=== PATIENT | female | born 1930 ===

== ENCOUNTER 2020-02-26 21:41 | Inpatient (IN) ==
[2020-02-26] MEDS ORDERED: Ondansetron 4 mg VIAL 2 MG/ML 2 ml VIAL ONE (21:44)
[2020-02-26 22:10] LABS: ABS Basophils 0.1 10^3/ul (0-0.2); ABS Eosinophils 0.1 10^3/ul (0-0.6); ABS Lymphocytes 4.6 10^3/ul (1.0-4.8); ABS Monocytes 0.7 10^3/ul (0-0.8); ABS Neutrophils 8.3 10^3/ul (1.5-7.7); Hematocrit 33 % (35-47); Hemoglobin 10.4 g/dL (12.0-16.0); Lymphocyte % 33.3 %; Mean Corpuscular HGB Conc 32 g/dL (31-36); Mean Corpuscular Hemoglobin 29 pg (27-31); Mean Corpuscular Volume 93 fL (80-97); Mean Platelet Volume 8.5 fL (7.4-10.4); Nucleated Red Blood Cells % 0.1; Platelet Count 369 10^3/uL (150-450); Red Blood Count 3.55 10^6 /uL (3.70-4.87); Red Cell Distribution Width 16 % (10-15); White Blood Count 13.8 10^3/uL (3.5-10.8)
[2020-02-26] MEDS ORDERED: nitroGLYCERIN DRIP 25,000 MCG/250 ML BTL IV ONE (22:10)
[2020-02-26] MEDS ORDERED: Furosemide 40 mg/4 ml IV VIAL IV SLOW PU ONE (22:10)
[2020-02-26] MEDS ORDERED: Ondansetron 4 mg VIAL 2 MG/ML 2 ml VIAL IV ONE (22:22)
[2020-02-26 22:28] LABS: ALT 16 U/L (7-52); AST 62 U/L (13-39); Albumin 3.6 g/dL (3.2-5.2); Albumin/Globulin Ratio 1.2 (1-3); Alkaline Phosphatase 84 U/L (34-104); Anion Gap 18 mmol/L (2-11); BUN/Creatinine Ratio 21.2 (8-20); Blood Urea Nitrogen 29 mg/dL (6-24); CO2 Carbon Dioxide 20 mmol/L (22-32); Calcium 8.9 mg/dL (8.6-10.3); Chloride 103 mmol/L (101-111); EGFR Non-African American 36.4 (>60); Globulin 3.1 g/dL (2-4); Glucose 367 mg/dL (70-100); Potassium 3.5 mmol/L (3.5-5.0); Sodium 141 mmol/L (135-145); Total Protein 6.7 g/dL (6.4-8.9)
[2020-02-26 22:47] LABS: Troponin I 3.38 ng/mL (<0.03)
[2020-02-26] MEDS ORDERED: Propofol 10 MG/ML 20 ML BTL IV PUSH ONE (23:08)
[2020-02-26] MEDS ORDERED: Propofol 10 mg/ml 100 ML BTL 100 ML ONE (23:14)
[2020-02-27] MEDS ORDERED: Amiodarone 360 MG IVPREMIX 360 MG/200 ML BAG IV ONE (00:11)
[2020-02-27] MEDS ORDERED: Amiodarone 150 mg IVPREMIX 150 MG/100 ML BAG IV ONE (00:11)
[2020-02-27] MEDS ORDERED: Dextrose 50% Syringe 50 ml 25 GM/50 ML SYRINGE IV PUSH PRN (00:11)
[2020-02-27] MEDS ORDERED: Heparin DRIP 25,000 UNITS BAG 25,000 UNITS/500 ML BAG IV SCH (00:15)
[2020-02-27 00:53] LABS: Magnesium 2.1 mg/dL (1.9-2.7)
[2020-02-27] MEDS ORDERED: Heparin 5000 UNITS/ML 1 mL VIAL IV SCH ×2 (01:00→04:00)
[2020-02-27] MEDS ORDERED: Iodixanol (CONTRAST) 320 MG/ML 100 ML SDV IV ONE (01:07)
[2020-02-27] MEDS: KCL 20 MEQ/100 ML IVPREMIX 20 MEQ/100 ML BAG IV SCH ×3 (01:28→06:03)
[2020-02-27 02:15] LABS: INR 1.02 (0.82-1.09)
[2020-02-27 03:50] LABS: Troponin I 25.77 ng/mL (<0.03)
[2020-02-27] MEDS: Heparin DRIP 25,000 UNITS BAG 25,000 UNITS/500 ML BAG IV SCH (03:56)
[2020-02-27 03:57] LABS: Urine Appearance Cloudy; Urine Bilirubin Negative (Negative); Urine Blood Negative (Negative); Urine Color Yellow; Urine Glucose 1+(50 mg/dL) (Negative); Urine Ketones Negative (Negative); Urine Nitrite Negative (Negative); Urine Protein Negative (Negative); Urine Specific Gravity 1.039 (1.010-1.030); Urine Urobilinogen Negative (Negative)
[2020-02-27 04:04] LABS: Urine Creatinine Concentration 87.46 mg/dL
[2020-02-27 04:06] LABS: Anion Gap 8 mmol/L (2-11); BUN/Creatinine Ratio 24.4 (8-20); Blood Urea Nitrogen 32 mg/dL (6-24); CO2 Carbon Dioxide 26 mmol/L (22-32); Calcium 8.3 mg/dL (8.6-10.3); Chloride 105 mmol/L (101-111); EGFR African American 46.4 (>60); EGFR Non-African American 38.3 (>60); Glucose 290 mg/dL (70-100); Potassium 4.4 mmol/L (3.5-5.0); Sodium 139 mmol/L (135-145)
[2020-02-27] MEDS: Amiodarone 360 MG IVPREMIX 360 MG/200 ML BAG IV SCH ×2 (06:07→17:54)
[2020-02-27 06:48] LABS: ABS Basophils 0.1 10^3/ul (0-0.2); ABS Lymphocytes 1.8 10^3/ul (1.0-4.8); ABS Monocytes 1.3 10^3/ul (0-0.8); ABS Neutrophils 14.8 10^3/ul (1.5-7.7); Eosinophil % 0.1 %; Hematocrit 32 % (35-47); Hemoglobin 10.5 g/dL (12.0-16.0); Lymphocyte % 9.8 %; Mean Corpuscular HGB Conc 33 g/dL (31-36); Mean Corpuscular Hemoglobin 30 pg (27-31); Mean Corpuscular Volume 91 fL (80-97); Mean Platelet Volume 8.6 fL (7.4-10.4); Platelet Count 345 10^3/uL (150-450); Red Blood Count 3.52 10^6 /uL (3.70-4.87); Red Cell Distribution Width 15 % (10-15); White Blood Count 17.9 10^3/uL (3.5-10.8)
[2020-02-27 07:06] LABS: BUN/Creatinine Ratio 24.6 (8-20); Blood Urea Nitrogen 35 mg/dL (6-24); CO2 Carbon Dioxide 23 mmol/L (22-32); Calcium 8.6 mg/dL (8.6-10.3); Chloride 105 mmol/L (101-111); EGFR African American 42.2 (>60); EGFR Non-African American 34.9 (>60); Glucose 303 mg/dL (70-100); Sodium 138 mmol/L (135-145)
[2020-02-27 07:15] LABS: Anion Gap 10 mmol/L (2-11); Potassium 5.1 mmol/L (3.5-5.0)
[2020-02-27 07:16] LABS: Troponin I 52.57 ng/mL (<0.03)
[2020-02-27] MEDS ORDERED: Furosemide 20 mg/2 ml IV VIAL IV SLOW PU ONE ×4 (07:56→17:53)
[2020-02-27 08:10] LABS: INR 1.13 (0.82-1.09)
[2020-02-27 08:12] LABS: Activated Partial Thrombo Time 145.8 seconds (26.0-38.0)
[2020-02-27 10:30] LABS: Troponin I > 74.00 ng/mL (<0.03)
[2020-02-27 10:42] LABS: BUN/Creatinine Ratio 25.4 (8-20); Blood Urea Nitrogen 36 mg/dL (6-24); CO2 Carbon Dioxide 23 mmol/L (22-32); Calcium 8.4 mg/dL (8.6-10.3); Chloride 104 mmol/L (101-111); EGFR African American 42.2 (>60); EGFR Non-African American 34.9 (>60); Glucose 272 mg/dL (70-100); Sodium 136 mmol/L (135-145)
[2020-02-27 10:54] LABS: Anion Gap 9 mmol/L (2-11); Potassium 5.5 mmol/L (3.5-5.0)
[2020-02-27 13:52] LABS: Troponin I > 84.00 ng/mL (<0.03)
[2020-02-27 16:44] LABS: Troponin I > 84.00 ng/mL (<0.03)
[2020-02-27] MEDS: cefTRIAXone 1 gm/50 mL NS BAG 1 GM/50 ML BAG IVPB SCH (17:41)
[2020-02-27] MEDS: DOXYcycline 100 MG in NS 0.9% 250 ml 250 ML IVPB SCH (18:29)
[2020-02-27 20:50] LABS: Hematocrit 28 % (35-47); Hemoglobin 9.4 g/dL (12.0-16.0); Mean Corpuscular HGB Conc 34 g/dL (31-36); Mean Corpuscular Hemoglobin 30 pg (27-31); Mean Corpuscular Volume 89 fL (80-97); Mean Platelet Volume 7.9 fL (7.4-10.4); Platelet Count 288 10^3/uL (150-450); Red Blood Count 3.15 10^6 /uL (3.70-4.87); Red Cell Distribution Width 15 % (10-15); White Blood Count 14.6 10^3/uL (3.5-10.8)
[2020-02-27 21:07] LABS: Anion Gap 7 mmol/L (2-11); BUN/Creatinine Ratio 24.8 (8-20); Blood Urea Nitrogen 34 mg/dL (6-24); CO2 Carbon Dioxide 27 mmol/L (22-32); Calcium 8.3 mg/dL (8.6-10.3); Chloride 105 mmol/L (101-111); EGFR Non-African American 36.4 (>60); Glucose 153 mg/dL (70-100); Magnesium 1.7 mg/dL (1.9-2.7); Potassium 4.2 mmol/L (3.5-5.0); Sodium 139 mmol/L (135-145)
[2020-02-27] MEDS ORDERED: Magnesium Sulfate 2 gm BAG 2 GM/50 ML BAG IVPB ONE (21:30)
[2020-02-27 21:38] LABS: Troponin I > 84.00 ng/mL (<0.03)
[2020-02-28] MEDS: DOXYcycline 100 MG in NS 0.9% 250 ml 250 ML IVPB SCH ×2 (05:59→18:00)
[2020-02-28 07:01] LABS: Anion Gap 8 mmol/L (2-11); BUN/Creatinine Ratio 28.6 (8-20); Blood Urea Nitrogen 36 mg/dL (6-24); CO2 Carbon Dioxide 26 mmol/L (22-32); Chloride 105 mmol/L (101-111); EGFR African American 48.5 (>60); EGFR Non-African American 40.1 (>60); Glucose 150 mg/dL (70-100); Potassium 3.6 mmol/L (3.5-5.0); Sodium 139 mmol/L (135-145)
[2020-02-28 07:02] LABS: ABS Lymphocytes 1.2 10^3/ul (1.0-4.8); ABS Monocytes 0.8 10^3/ul (0-0.8); ABS Neutrophils 8.4 10^3/ul (1.5-7.7); Eosinophil % 0.1 %; Hematocrit 25 % (35-47); Hemoglobin 8.1 g/dL (12.0-16.0); Lymphocyte % 11.2 %; Mean Corpuscular HGB Conc 33 g/dL (31-36); Mean Corpuscular Hemoglobin 30 pg (27-31); Mean Corpuscular Volume 90 fL (80-97); Mean Platelet Volume 8.3 fL (7.4-10.4); Platelet Count 245 10^3/uL (150-450); Red Blood Count 2.75 10^6 /uL (3.70-4.87); Red Cell Distribution Width 15 % (10-15); White Blood Count 10.3 10^3/uL (3.5-10.8)
[2020-02-28 07:07] LABS: Troponin I 49.32 ng/mL (<0.03)
[2020-02-28] MEDS ORDERED: Potassium Chloride LIQUID 20 MEQ/15 ML LIQUID PO ONE (08:29)
[2020-02-28] MEDS: Amiodarone 400 mg TAB PO SCH ×3 (09:32→21:04)
[2020-02-28] MEDS: Bumetanide IV 10 MG in Premix IV 0 ML IV SCH ×4 (11:09→16:07)
[2020-02-28] MEDS: cefTRIAXone 1 gm/50 mL NS BAG 1 GM/50 ML BAG IVPB SCH (17:24)
[2020-02-28 18:51] LABS: Troponin I 22.77 ng/mL (<0.03)
[2020-02-28 18:59] LABS: Anion Gap 9 mmol/L (2-11); BUN/Creatinine Ratio 29.2 (8-20); Blood Urea Nitrogen 33 mg/dL (6-24); CO2 Carbon Dioxide 27 mmol/L (22-32); Calcium 8.2 mg/dL (8.6-10.3); Chloride 103 mmol/L (101-111); EGFR Non-African American 45.4 (>60); Glucose 190 mg/dL (70-100); Phosphorus 2.3 mg/dL (2.5-5.0); Potassium 4.4 mmol/L (3.5-5.0); Sodium 139 mmol/L (135-145)
[2020-02-28] MEDS ORDERED: Ondansetron 4 mg VIAL 2 MG/ML 2 ml VIAL ONE (19:27)
[2020-02-28] MEDS ORDERED: Ondansetron 4 mg VIAL 2 MG/ML 2 ml VIAL IV ONE (20:20)
[2020-02-29] MEDS: DOXYcycline 100 MG in NS 0.9% 250 ml 250 ML IVPB SCH (04:45)
[2020-02-29 05:17] LABS: ABS Lymphocytes 1.4 10^3/ul (1.0-4.8); ABS Monocytes 0.8 10^3/ul (0-0.8); ABS Neutrophils 7.6 10^3/ul (1.5-7.7); Eosinophil % 0.2 %; Hematocrit 24 % (35-47); Hemoglobin 8.1 g/dL (12.0-16.0); Lymphocyte % 14.2 %; Mean Corpuscular HGB Conc 34 g/dL (31-36); Mean Corpuscular Hemoglobin 30 pg (27-31); Mean Corpuscular Volume 89 fL (80-97); Mean Platelet Volume 8.5 fL (7.4-10.4); Platelet Count 239 10^3/uL (150-450); Red Cell Distribution Width 15 % (10-15); White Blood Count 9.8 10^3/uL (3.5-10.8)
[2020-02-29 05:33] LABS: BUN/Creatinine Ratio 26.1 (8-20); Calcium 7.7 mg/dL (8.6-10.3); EGFR African American 42.2 (>60); EGFR Non-African American 34.9 (>60); Magnesium 1.9 mg/dL (1.9-2.7); Potassium 3.5 mmol/L (3.5-5.0)
[2020-02-29] MEDS ORDERED: Magnesium Sulfate IV 1GM/100ML 1 GM/100 ML BAG IV ONE (05:35)
[2020-02-29] MEDS: Heparin DRIP 25,000 UNITS BAG 25,000 UNITS/500 ML BAG IV SCH (05:57)
[2020-02-29] MEDS ORDERED: Potassium Chlor 20 meq TAB.ER PO ONE (06:13)
[2020-02-29] MEDS ORDERED: KCL 20 MEQ/100 ML IVPREMIX 20 MEQ/100 ML BAG IV ONE (09:04)
[2020-02-29] MEDS: Amiodarone 400 mg TAB PO SCH ×3 (10:23→21:34)
[2020-02-29] MEDS: Bumetanide IV 10 MG in Premix IV 0 ML IV SCH (11:06)
[2020-02-29 11:51] LABS: Free T4 1.15 ng/dL (0.61-1.12); TSH Ultra Thyroid Stim Horm 3.28 mcIU/mL (0.34-5.60)
[2020-02-29 17:57] LABS: ABS Eosinophils 0.1 10^3/ul (0-0.6); ABS Lymphocytes 1.7 10^3/ul (1.0-4.8); ABS Monocytes 0.7 10^3/ul (0-0.8); ABS Neutrophils 7.2 10^3/ul (1.5-7.7); Eosinophil % 0.8 %; Hematocrit 25 % (35-47); Hemoglobin 8.1 g/dL (12.0-16.0); Lymphocyte % 17.1 %; Mean Corpuscular HGB Conc 33 g/dL (31-36); Mean Corpuscular Hemoglobin 30 pg (27-31); Mean Corpuscular Volume 90 fL (80-97); Mean Platelet Volume 8.8 fL (7.4-10.4); Platelet Count 263 10^3/uL (150-450); Red Blood Count 2.74 10^6 /uL (3.70-4.87); Red Cell Distribution Width 15 % (10-15); White Blood Count 9.7 10^3/uL (3.5-10.8)
[2020-02-29] MEDS ORDERED: Amiodarone 400 mg TAB PO SCH (21:00)
[2020-03-01 05:38] LABS: ABS Basophils 0.1 10^3/ul (0-0.2); ABS Eosinophils 0.2 10^3/ul (0-0.6); ABS Lymphocytes 1.5 10^3/ul (1.0-4.8); ABS Monocytes 0.7 10^3/ul (0-0.8); ABS Neutrophils 6.6 10^3/ul (1.5-7.7); Eosinophil % 1.8 %; Hematocrit 25 % (35-47); Hemoglobin 8.4 g/dL (12.0-16.0); Lymphocyte % 16.2 %; Mean Corpuscular HGB Conc 34 g/dL (31-36); Mean Corpuscular Hemoglobin 31 pg (27-31); Mean Corpuscular Volume 89 fL (80-97); Mean Platelet Volume 8.3 fL (7.4-10.4); Platelet Count 286 10^3/uL (150-450); Red Blood Count 2.77 10^6 /uL (3.70-4.87); Red Cell Distribution Width 15 % (10-15); White Blood Count 8.9 10^3/uL (3.5-10.8)
[2020-03-01 05:53] LABS: BUN/Creatinine Ratio 27.6 (8-20); Calcium 8.4 mg/dL (8.6-10.3); EGFR Non-African American 29.8 (>60); Magnesium 2.1 mg/dL (1.9-2.7); Potassium 3.6 mmol/L (3.5-5.0)
[2020-03-01] MEDS ORDERED: Potassium Chloride LIQUID 20 MEQ/15 ML LIQUID PO ONE (06:03)
[2020-03-01] MEDS ORDERED: KCL 20 MEQ/100 ML IVPREMIX 20 MEQ/100 ML BAG IV ONE (08:33)
[2020-03-01] MEDS: Amiodarone 400 mg TAB PO SCH ×2 (09:24→22:00)
[2020-03-01] MEDS ORDERED: Furosemide 40 mg/4 ml IV VIAL IV ONE (09:27)
[2020-03-02 06:35] LABS: ABS Eosinophils 0.2 10^3/ul (0-0.6); ABS Lymphocytes 1.8 10^3/ul (1.0-4.8); ABS Monocytes 0.9 10^3/ul (0-0.8); ABS Neutrophils 6.2 10^3/ul (1.5-7.7); Eosinophil % 2.3 %; Hematocrit 27 % (35-47); Hemoglobin 9.2 g/dL (12.0-16.0); Lymphocyte % 19.9 %; Mean Corpuscular HGB Conc 34 g/dL (31-36); Mean Corpuscular Hemoglobin 30 pg (27-31); Mean Corpuscular Volume 89 fL (80-97); Mean Platelet Volume 8.1 fL (7.4-10.4); Platelet Count 345 10^3/uL (150-450); Red Blood Count 3.06 10^6 /uL (3.70-4.87); Red Cell Distribution Width 15 % (10-15); White Blood Count 9.2 10^3/uL (3.5-10.8)
[2020-03-02 06:58] LABS: BUN/Creatinine Ratio 31.3 (8-20); Calcium 8.9 mg/dL (8.6-10.3); EGFR Non-African American 27.3 (>60); Potassium 3.7 mmol/L (3.5-5.0)
[2020-03-02] MEDS: Amiodarone 400 mg TAB PO SCH ×2 (08:56→20:14)
[2020-03-02] MEDS: Potassium Chlor 20 meq TAB.ER PO SCH ×2 (08:57→13:27)
[2020-03-02] MEDS ORDERED: Furosemide 40 mg/4 ml IV VIAL IV SLOW PU SCH (09:00)
[2020-03-03 05:46] LABS: Total Iron Binding Capacity 311 mcg/dL (250-450); Transferrin 222 mg/dL (203-362)
[2020-03-03 06:07] LABS: Ferritin 65.9 ng/mL (11-307)
[2020-03-03 07:08] LABS: Calcium 8.9 mg/dL (8.6-10.3); EGFR African American 36.8 (>60); EGFR Non-African American 30.4 (>60); Magnesium 1.9 mg/dL (1.9-2.7)
[2020-03-03 07:14] LABS: % Iron Saturation 6 % (15-55); Iron < 20 ug/dL (50-212); Unsaturated Iron Binding < 296 ug/dL
[2020-03-03] MEDS: Amiodarone 400 mg TAB PO SCH ×2 (09:52→19:58)
[2020-03-04] MEDS: Amiodarone 400 mg TAB PO SCH ×2 (08:51→19:55)
[2020-03-04] MEDS: Polyethylene Glycol 3350 17 GM PACKET PO SCH (19:59)
[2020-03-04] MEDS ORDERED: Ondansetron 4 mg VIAL 2 MG/ML 2 ml VIAL IV ONE (21:15)
[2020-03-05] MEDS: Polyethylene Glycol 3350 17 GM PACKET PO SCH ×2 (08:33→22:04)
[2020-03-05] MEDS: Amiodarone 400 mg TAB PO SCH ×2 (08:35→22:19)
[2020-03-05] MEDS ORDERED: Ondansetron 4 mg VIAL 2 MG/ML 2 ml VIAL IV ONE (23:26)
[2020-03-06 07:18] LABS: ABS Eosinophils 0.2 10^3/ul (0-0.6); ABS Lymphocytes 1.4 10^3/ul (1.0-4.8); ABS Monocytes 0.8 10^3/ul (0-0.8); ABS Neutrophils 4.4 10^3/ul (1.5-7.7); Eosinophil % 2.5 %; Hematocrit 26 % (35-47); Hemoglobin 8.5 g/dL (12.0-16.0); Lymphocyte % 20.5 %; Mean Corpuscular HGB Conc 33 g/dL (31-36); Mean Corpuscular Hemoglobin 30 pg (27-31); Mean Corpuscular Volume 89 fL (80-97); Mean Platelet Volume 7.3 fL (7.4-10.4); Nucleated Red Blood Cells % 0.1; Platelet Count 411 10^3/uL (150-450); Red Blood Count 2.89 10^6 /uL (3.70-4.87); Red Cell Distribution Width 14 % (10-15); White Blood Count 6.9 10^3/uL (3.5-10.8)
[2020-03-06 07:38] LABS: BUN/Creatinine Ratio 33.6 (8-20); EGFR African American 45.2 (>60); EGFR Non-African American 37.3 (>60); Potassium 3.7 mmol/L (3.5-5.0)
[2020-03-06] MEDS ORDERED: Midazolam 5 mg/5 ml VIAL 1 mg/ml 5 ml VIAL (5 mg) ONE (10:16)
[2020-03-06] MEDS ORDERED: Flumazenil 0.5 mg/5 ml 0.1 MG/ML 5 ml VIAL ONE (10:17)
[2020-03-06] MEDS ORDERED: fentaNYL 100 mcg/2 ml 50 MCG/ML VIAL ONE (10:17)
[2020-03-06] MEDS ORDERED: Naloxone 0.4 mg VIAL 0.4 mg/ml 1 ml VIAL ONE (10:17)
[2020-03-06] MEDS: Amiodarone 400 mg TAB PO SCH ×2 (15:25→21:37)
[2020-03-06] MEDS: Polyethylene Glycol 3350 17 GM PACKET PO SCH ×2 (15:25→21:38)
[2020-03-07 06:47] LABS: BUN/Creatinine Ratio 32.6 (8-20); Calcium 8.9 mg/dL (8.6-10.3); Potassium 3.3 mmol/L (3.5-5.0)
[2020-03-07] MEDS: Polyethylene Glycol 3350 17 GM PACKET PO SCH ×2 (09:46→21:04)
[2020-03-07] MEDS: Amiodarone 400 mg TAB PO SCH (10:39)
[2020-03-07] MEDS: Furosemide 20 mg/2 ml IV VIAL IV SCH (16:16)
[2020-03-07] MEDS ORDERED: Furosemide 20 mg/2 ml IV VIAL IV SCH (21:00)
[2020-03-08 07:43] LABS: ABS Basophils 0.1 10^3/ul (0-0.2); ABS Eosinophils 0.1 10^3/ul (0-0.6); ABS Lymphocytes 1.5 10^3/ul (1.0-4.8); ABS Monocytes 0.8 10^3/ul (0-0.8); ABS Neutrophils 7.6 10^3/ul (1.5-7.7); Eosinophil % 1.1 %; Hematocrit 27 % (35-47); Lymphocyte % 14.8 %; Mean Corpuscular HGB Conc 33 g/dL (31-36); Mean Corpuscular Hemoglobin 29 pg (27-31); Mean Corpuscular Volume 88 fL (80-97); Mean Platelet Volume 7.4 fL (7.4-10.4); Platelet Count 495 10^3/uL (150-450); Red Blood Count 3.07 10^6 /uL (3.70-4.87); Red Cell Distribution Width 15 % (10-15); White Blood Count 10.1 10^3/uL (3.5-10.8)
[2020-03-08 08:02] LABS: BUN/Creatinine Ratio 30.6 (8-20); Calcium 9.1 mg/dL (8.6-10.3); EGFR African American 41.6 (>60); EGFR Non-African American 34.4 (>60); Potassium 3.6 mmol/L (3.5-5.0)
[2020-03-08] MEDS: Polyethylene Glycol 3350 17 GM PACKET PO SCH ×2 (09:32→21:15)
[2020-03-08] MEDS: Furosemide 20 mg/2 ml IV VIAL IV SCH ×2 (09:40→20:09)
[2020-03-09 06:13] LABS: BUN/Creatinine Ratio 29.4 (8-20); EGFR African American 41.9 (>60); EGFR Non-African American 34.6 (>60); Potassium 3.4 mmol/L (3.5-5.0)
[2020-03-09] MEDS: Polyethylene Glycol 3350 17 GM PACKET PO SCH ×2 (08:53→20:16)
[2020-03-09] MEDS: Potassium Chlor 10 meq TAB PO SCH ×3 (08:53→20:21)
[2020-03-09] MEDS: Furosemide 20 mg/2 ml IV VIAL IV SCH (08:57)
[2020-03-10 06:35] LABS: BUN/Creatinine Ratio 27.4 (8-20); Calcium 8.7 mg/dL (8.6-10.3); EGFR African American 40.9 (>60); EGFR Non-African American 33.8 (>60); Magnesium 1.7 mg/dL (1.9-2.7); Potassium 3.2 mmol/L (3.5-5.0)
[2020-03-10] MEDS ORDERED: Magnesium Sulfate IV 3 GM in NS 0.9% 100 ml BAG 100 ML IVPB ONE (07:47)
[2020-03-10] MEDS: Potassium Chlor 10 meq TAB PO SCH (08:59)
[2020-03-10] MEDS: Polyethylene Glycol 3350 17 GM PACKET PO SCH (08:59)
[2020-03-10 12:21] VITALS: BP 92/46
== END 2020-03-10 13:34 | disposition home or self-care (01) | DRG 280 ==
LOC: ED 21:41 → EDHOLD 02-27 07:03 → ICU 02-27 07:24 → MEDTELE 03-01 11:03
PROVIDERS: ADMIT Internal Medicine; ATTEND Internal Medicine

== ENCOUNTER 2020-05-24 20:37 | Inpatient (IN) ==
[2020-05-24 21:42] LABS: ABS Basophils 0.1 10^3/ul (0-0.2); ABS Lymphocytes 1.1 10^3/ul (1.0-4.8); ABS Monocytes 0.9 10^3/ul (0-0.8); ABS Neutrophils 9.4 10^3/ul (1.5-7.7); Eosinophil % 0.3 %; Hematocrit 31 % (35-47); Hemoglobin 10.1 g/dL (12.0-16.0); Lymphocyte % 9.6 %; Mean Corpuscular HGB Conc 33 g/dL (31-36); Mean Corpuscular Hemoglobin 29 pg (27-31); Mean Corpuscular Volume 89 fL (80-97); Mean Platelet Volume 8.2 fL (7.4-10.4); Platelet Count 337 10^3/uL (150-450); Red Blood Count 3.47 10^6 /uL (3.70-4.87); Red Cell Distribution Width 19 % (10-15); White Blood Count 11.5 10^3/uL (3.5-10.8)
[2020-05-24 21:51] LABS: LDH 296 U/L (140-271)
[2020-05-24 21:53] LABS: ALT 32 U/L (7-52); AST 54 U/L (13-39); Albumin 3.2 g/dL (3.2-5.2); Albumin/Globulin Ratio 0.9 (1-3); Alkaline Phosphatase 94 U/L (34-104); Anion Gap 8 mmol/L (2-11); BUN/Creatinine Ratio 25.4 (8-20); Blood Urea Nitrogen 30 mg/dL (6-24); C Reactive Protein < 1.00 mg/L (<8.01); CO2 Carbon Dioxide 24 mmol/L (22-32); Calcium 9.7 mg/dL (8.6-10.3); Chloride 101 mmol/L (101-111); EGFR African American 52.3 (>60); EGFR Non-African American 43.2 (>60); Globulin 3.5 g/dL (2-4); Glucose 151 mg/dL (70-100); Potassium 4.6 mmol/L (3.5-5.0); Sodium 133 mmol/L (135-145); Total Protein 6.7 g/dL (6.4-8.9)
[2020-05-24 22:02] LABS: Troponin I 0.18 ng/mL (<0.03)
[2020-05-24 22:08] LABS: TSH Ultra Thyroid Stim Horm 15.89 mcIU/mL (0.34-5.60)
[2020-05-24 22:10] LABS: Free T4 1.34 ng/dL (0.61-1.12)
[2020-05-24] MEDS ORDERED: NS 0.9% 1000 ml BAG 1,000 ML IV.FLUID IV ONE (22:11)
[2020-05-24 22:12] LABS: Influenza A Molecular Negative (Negative); Influenza B Molecular Negative (Negative)
[2020-05-24 22:13] LABS: Ferritin 146.5 ng/mL (11-307)
[2020-05-24 22:43] LABS: Activated Partial Thrombo Time 24.2 seconds (26.0-38.0); INR 1.03 (0.82-1.09)
[2020-05-24] MEDS ORDERED: Magnesium Hydroxide LIQ 30 ML UDC PO PRN (23:15)
[2020-05-24] MEDS ORDERED: Dextrose 50% Syringe 50 ml 25 GM/50 ML SYRINGE IV PUSH PRN (23:26)
[2020-05-24] MEDS ORDERED: Furosemide 20 mg/2 ml IV VIAL IV ONE (23:30)
[2020-05-24] MEDS ORDERED: Enoxaparin 30 MG/0.3 ML SYR SUBCUT SCH (23:45)
[2020-05-25 04:26] LABS: Troponin I 1.81 ng/mL (<0.03)
[2020-05-25 08:51] LABS: ABS Basophils 0.1 10^3/ul (0-0.2); ABS Eosinophils 0.1 10^3/ul (0-0.6); ABS Lymphocytes 0.9 10^3/ul (1.0-4.8); ABS Monocytes 0.5 10^3/ul (0-0.8); ABS Neutrophils 5.8 10^3/ul (1.5-7.7); Eosinophil % 0.8 %; Hematocrit 28 % (35-47); Hemoglobin 9.1 g/dL (12.0-16.0); Lymphocyte % 12.4 %; Mean Corpuscular HGB Conc 33 g/dL (31-36); Mean Corpuscular Hemoglobin 29 pg (27-31); Mean Corpuscular Volume 89 fL (80-97); Mean Platelet Volume 7.9 fL (7.4-10.4); Platelet Count 294 10^3/uL (150-450); Red Blood Count 3.13 10^6 /uL (3.70-4.87); Red Cell Distribution Width 18 % (10-15); White Blood Count 7.3 10^3/uL (3.5-10.8)
[2020-05-25 09:07] LABS: ALT 28 U/L (7-52); AST 46 U/L (13-39); Albumin 2.9 g/dL (3.2-5.2); Albumin/Globulin Ratio 0.9 (1-3); Alkaline Phosphatase 79 U/L (34-104); Anion Gap 6 mmol/L (2-11); BUN/Creatinine Ratio 22.9 (8-20); Blood Urea Nitrogen 27 mg/dL (6-24); CO2 Carbon Dioxide 26 mmol/L (22-32); Calcium 8.9 mg/dL (8.6-10.3); Chloride 104 mmol/L (101-111); EGFR African American 52.3 (>60); EGFR Non-African American 43.2 (>60); Globulin 3.2 g/dL (2-4); Glucose 96 mg/dL (70-100); Potassium 4.6 mmol/L (3.5-5.0); Sodium 136 mmol/L (135-145); Total Protein 6.1 g/dL (6.4-8.9)
[2020-05-25 09:09] LABS: Troponin I 1.63 ng/mL (<0.03)
[2020-05-25 09:17] LABS: Thyroid Peroxidase Antibodies 3.06 IU/mL (<9); Total T3 40 ng/dL (87-178)
[2020-05-25] MEDS: Potassium Chlor 20 meq TAB.ER PO SCH (10:19)
[2020-05-25] MEDS: Furosemide 20 mg/2 ml IV VIAL IV SCH ×2 (10:19→22:31)
[2020-05-25 11:10] LABS: % Iron Saturation 7 % (15-55); Iron 20 ug/dL (50-212); Total Iron Binding Capacity 300 mcg/dL (250-450); Transferrin 214 mg/dL (203-362); Unsaturated Iron Binding < 285 ug/dL
[2020-05-25 11:30] LABS: Ferritin 144.6 ng/mL (11-307)
[2020-05-25 11:35] LABS: Troponin I 1.65 ng/mL (<0.03)
[2020-05-26 07:15] LABS: ABS Basophils 0.1 10^3/ul (0-0.2); ABS Eosinophils 0.3 10^3/ul (0-0.6); ABS Lymphocytes 1.3 10^3/ul (1.0-4.8); ABS Monocytes 0.8 10^3/ul (0-0.8); ABS Neutrophils 4.9 10^3/ul (1.5-7.7); Hematocrit 31 % (35-47); Hemoglobin 10.1 g/dL (12.0-16.0); Lymphocyte % 17.3 %; Mean Corpuscular HGB Conc 33 g/dL (31-36); Mean Corpuscular Hemoglobin 29 pg (27-31); Mean Corpuscular Volume 89 fL (80-97); Mean Platelet Volume 7.8 fL (7.4-10.4); Platelet Count 294 10^3/uL (150-450); Red Blood Count 3.44 10^6 /uL (3.70-4.87); Red Cell Distribution Width 19 % (10-15); White Blood Count 7.4 10^3/uL (3.5-10.8)
[2020-05-26 07:27] LABS: BUN/Creatinine Ratio 21.6 (8-20); Calcium 8.8 mg/dL (8.6-10.3); EGFR African American 53.3 (>60); EGFR Non-African American 44.1 (>60); Potassium 3.8 mmol/L (3.5-5.0)
[2020-05-26] MEDS: Potassium Chlor 20 meq TAB.ER PO SCH (08:46)
[2020-05-26] MEDS: Furosemide 20 mg/2 ml IV VIAL IV SCH (08:48)
[2020-05-26 19:47] VITALS: BP 107/72
== END 2020-05-26 17:35 | disposition home or self-care (01) | DRG 291 ==
LOC: ED 20:37 → MED 23:15
PROVIDERS: ADMIT Internal Medicine; ATTEND Internal Medicine

== ENCOUNTER 2020-06-04 07:36 | Inpatient (IN) ==
[2020-06-04] MEDS ORDERED: Morphine 4 MG/ML VIAL (1 ml) IV ONE ×2 (07:56→08:11)
[2020-06-04 08:48] LABS: ABS Lymphocytes 0.8 10^3/ul (1.0-4.8); ABS Monocytes 1.1 10^3/ul (0-0.8); ABS Neutrophils 13.3 10^3/ul (1.5-7.7); Eosinophil % 0.3 %; Hematocrit 28 % (35-47); Hemoglobin 8.9 g/dL (12.0-16.0); Lymphocyte % 5.5 %; Mean Corpuscular HGB Conc 32 g/dL (31-36); Mean Corpuscular Hemoglobin 29 pg (27-31); Mean Corpuscular Volume 89 fL (80-97); Platelet Count 338 10^3/uL (150-450); Red Cell Distribution Width 18 % (10-15); White Blood Count 15.4 10^3/uL (3.5-10.8)
[2020-06-04 08:55] LABS: INR 1.13 (0.82-1.09)
[2020-06-04 09:17] LABS: ALT 25 U/L (7-52); AST 37 U/L (13-39); Albumin 2.9 g/dL (3.2-5.2); Alkaline Phosphatase 67 U/L (34-104); Anion Gap 8 mmol/L (2-11); BUN/Creatinine Ratio 19.7 (8-20); Blood Urea Nitrogen 23 mg/dL (6-24); CO2 Carbon Dioxide 23 mmol/L (22-32); Calcium 8.3 mg/dL (8.6-10.3); Chloride 104 mmol/L (101-111); Creatine Kinase 124 U/L (10-223); EGFR African American 52.8 (>60); EGFR Non-African American 43.7 (>60); Globulin 2.9 g/dL (2-4); Glucose 139 mg/dL (70-100); Potassium 4.5 mmol/L (3.5-5.0); Sodium 135 mmol/L (135-145); Total Protein 5.8 g/dL (6.4-8.9)
[2020-06-04] MEDS ORDERED: Ondansetron 4 mg VIAL 2 MG/ML 2 ml VIAL ONE (10:12)
[2020-06-04] MEDS ORDERED: Ondansetron 4 mg VIAL 2 MG/ML 2 ml VIAL IV ONE (10:12)
[2020-06-04] MEDS ORDERED: NS 0.9% 1000 ml BAG 250 ML IV ONE ×2 (11:01→13:39)
[2020-06-04 11:51] LABS: Magnesium 1.6 mg/dL (1.9-2.7)
[2020-06-04] MEDS ORDERED: Magnesium Sulfate 2 gm BAG 2 GM/50 ML BAG IVPB ONE (11:54)
[2020-06-04 12:14] LABS: C Reactive Protein 1.57 mg/L (<8.01)
[2020-06-04 12:15] LABS: T4, Total 8.65 mcg/dL (6.09-12.23)
[2020-06-04 12:16] LABS: TSH Ultra Thyroid Stim Horm 16.96 mcIU/mL (0.34-5.60)
[2020-06-04 12:17] LABS: Free T4 1.35 ng/dL (0.61-1.12)
[2020-06-04 12:23] LABS: Total T3 23 ng/dL (87-178)
[2020-06-04 12:24] LABS: Thyroid Peroxidase Antibodies 2.55 IU/mL (<9)
[2020-06-04 12:44] LABS: % Iron Saturation 13 % (15-55); Iron 40 ug/dL (50-212); Total Iron Binding Capacity 298 mcg/dL (250-450); Transferrin 213 mg/dL (203-362); Unsaturated Iron Binding < 283 ug/dL
[2020-06-04 13:06] LABS: Ferritin 155.2 ng/mL (11-307)
[2020-06-04] MEDS ORDERED: Dextrose 50% Syringe 50 ml 25 GM/50 ML SYRINGE IV PUSH PRN (13:29)
[2020-06-04] MEDS ORDERED: Heparin 5000 UNITS/ML 1 mL VIAL SUBCUT SCH (14:00)
[2020-06-04] MEDS ORDERED: Morphine 2 MG/ML SYRINGE IV ONE (17:56)
[2020-06-04] MEDS ORDERED: Ondansetron ODT 4 mg TAB 4 MG TAB SL PRN (18:39)
[2020-06-04] MEDS ORDERED: LORazepam 2 mg VIAL 1 ml IV PUSH PRN (18:39)
[2020-06-04] MEDS ORDERED: Atropine 1% (ORAL/SL) 15 ML BTL SL PRN (18:39)
[2020-06-04] MEDS ORDERED: Lorazepam PYXIS KEY PRN (18:57)
[2020-06-05] MEDS: Morphine 2 MG/ML SYRINGE IV PRN ×2 (00:40→16:27)
[2020-06-05] MEDS ORDERED: Calcium/Vitamin D TAB 250/125 TAB PO SCH (09:00)
[2020-06-06] MEDS: Morphine 2 MG/ML SYRINGE IV PRN ×2 (05:57→14:56)
[2020-06-07] MEDS: Morphine 2 MG/ML SYRINGE IV PRN ×3 (13:51→23:18)
[2020-06-08] MEDS: Morphine 2 MG/ML SYRINGE IV PRN ×2 (08:07→16:30)
[2020-06-09] MEDS: Morphine 2 MG/ML SYRINGE IV PRN ×3 (05:30→21:19)
[2020-06-10] MEDS: Morphine 2 MG/ML SYRINGE IV PRN ×2 (10:15→14:53)
[2020-06-10] MEDS ORDERED: Senna TAB 8.6 mg TAB PO PRN (10:29)
[2020-06-10] MEDS: Magnesium Hydroxide LIQ 30 ML UDC PO PRN (12:40)
[2020-06-10 17:33] VITALS: BP 115/71
[2020-06-11] MEDS: Morphine 2 MG/ML SYRINGE IV PRN ×2 (03:49→11:15)
[2020-06-11] MEDS: Magnesium Hydroxide LIQ 30 ML UDC PO PRN (10:01)
[2020-06-12] MEDS: Morphine ORAL CONCENTRATE 5 MG/0.25 ML ORAL.SYRIN SL PRN ×2 (00:26→10:12)
== END 2020-06-12 11:45 | disposition home or self-care (01) | DRG 963 ==
LOC: ED 07:36 → MEDTELE 11:59 → MERGE 11:59
PROVIDERS: ADMIT Internal Medicine; ATTEND Internal Medicine